=== PATIENT | male | born 1970 | race Caucasian/White ===

== ENCOUNTER 2018-07-12 14:15 | Observation (INO) | payer OTHER ==
[~2018-07-12] VITALS: Ht 180.3 cm; Wt 217.5 kg
[2018-07-12 14:19] VITALS: Ht 180.3 cm; Wt 217.5 kg
--- NOTE | 2018-07-12 14:29 | NUR ---
PT SENT TO LOBBY TO WAIT FOR AVAILABLE BED. NO DISTRESS AND PT IS ALERT AND ORIENTED AT THIS TIME
--- NOTE | 2018-07-12 16:35 | NUR ---
AWAKE ALERT ORIENTED, STATED SINCE ONE WEEK STARTED TO HAVE SOB AND NON PRODUCTIVE COUGH,,ALSO SHARP CHEST PAIN DURING COUGHING .
--- NOTE | 2018-07-12 17:00 | NUR ---
RESP. IMPROVED BUT STILL SOB IN MINIMAL EXERTION,
[2018-07-12 17:39] LABS: BASOPHIL % 0.5 % (0-2); PLATELET COUNT 205 x10^3mcL (130-400)
[2018-07-12 17:44] LABS: CALCIUM 8.6 mg/dL (8.5-10.1); CARBON DIOXIDE 26.7 mmol/L (21-32); CHLORIDE SERUM 92 mmol/L (98-107); CREATININE SERUM 1.1 mg/dL (0.7-1.3); GFR1 > 60 mL/min; GLUCOSE SERUM 320 mg/dL (74-106); POTASSIUM SERUM 4.2 mmol/L (3.5-5.1); SODIUM SERUM 129 mmol/L (136-145)
[2018-07-12 17:57] LABS: ALKALINE PHOSPHATASE 63 U/L (46-116); ALT/SGPT 40 U/L (16-63); AST/SGOT 77 U/L (15-37); BILIRUBIN TOTAL 0.57 mg/dL (0.20-1.00); C REACTIVE PROTEIN 7.2 mg/dL (<=0.9)
[2018-07-12 17:59] LABS: T3 TOTAL 1.41 ng/mL
[2018-07-12 18:02] LABS: ALBUMIN 3.1 g/dL (3.4-5.0); TOTAL PROTEIN, SERUM 8.3 g/dL (6.4-8.2)
[2018-07-12 18:24] LABS: CK-MB 1.6 ng/mL (0-3.6)
[2018-07-12 18:36] LABS: FREE T4 1.69 ng/dL (0.76-1.46); FREE THYROXINE INDEX 4.2 ug/dL (1.4-4.5); T4(THYROXINE) 12.3 ug/dL (4.7-13.3)
[2018-07-12 18:37] LABS: ERYTHROCYTE SED RATE 82 mm/hr (0-15)
--- NOTE | 2018-07-12 19:06 | NUR ---
US DONE TO LOWER EXTREMITIES, PT UNABLE TO TOLERATE BIPAP RESP. THERAPIST CALLED
--- NOTE | 2018-07-12 19:10 | NUR ---
RECEIVED REPORT FROM JOEY LUCERO. PT SITTING UP ON EDGE OF BED WITH BIPAP IN PLACE. NO SIGNS OF DISTRESS AT THIS TIME.
--- NOTE | 2018-07-12 20:10 | NUR ---
REPORT GIVEN TO KLEVER LUCERO.
--- NOTE | 2018-07-12 20:40 | NUR ---
RECEIVED PT FROM ED VIA [facility] ACCOMPANIED BY RN ON 3LNC. NO ACUTE DISTRESS NOTED. AOX4. PT ABLE TO AMBULATE TO THE BED. COMPLAINT OF SOME SOB. INCREASED O2 TO 4LNC. DENIES ANY CHEST PAIN/PRESSURE. IVL TO LFA, PATENT AND INTACT. BED IN LOWEST POSITION. SIDE RAILS UP X2. INSTRUCTED ON USE OF CALL LIGHT WHEN IN NEED OF ASSISTANCE, WITHIN REACH. WILL CONTINUE TO MONITOR.
[2018-07-12 22:32] VITALS: BP 123/63
--- NOTE | 2018-07-13 00:45 | NUR ---
PT RESTING IN BED COMFORTABLY AFTER USING THE BATHROOM. NO SOB NOTED ON 4LNC. MEDICATED PT PER EMAR FOR 8/10 LOWER BACK/TAILBONE PAIN. IVL INTACT AND PATENT. BED IN LOWEST POSITION. SIDE RAILS UP X2. CALL LIGHT WITHIN REACH. WILL REASSESS FOR PAIN AND CONTINUE TO MONITOR.
[2018-07-13 05:12] VITALS: BP 117/39
[2018-07-13 06:16] LABS: BASOPHIL % 0.4 % (0-2); PLATELET COUNT 181 x10^3mcL (130-400)
--- NOTE | 2018-07-13 06:29 | NUR ---
PT SLEPT PERIODICALLY THROUGHOUT THE NIGHT. NO ACUTE DISTRESS NOTED. EVEN AND UNLABORED RESPIRATIONS NOTED ON 4LNC, NONPRODUCTIVE COUGH NOTED. IV INTACT AND PATENT. ALL NEEDS TENDED TO AND MET. BACK PAIN MEDICATED PER EMAR. FASTING BLOOD SUGAR: 312 COVERED WITH 12 UNITS OF INSULIN. ROCEPHIN ADMINISTERED VIA IVPB. PT TOLERATED MEDS WELL. BED IN LOWEST POSITION. SIDE RAILS UP X2. CALL LIGHT WITHIN REACH. WILL CONTINUE TO MONITOR.
--- NOTE | 2018-07-13 07:05 | NUR ---
RECIEVED PT FROM NIGHT NURSE. PT IS LAYING DOWN IN BED WITH HOB UP. RESPIRATIONS EVEN AND UNLABORED ON 4L NC. PT LOOKS TO BE IN NO ACUTE DISTRESS AT THIS TIME. PT REQUESTING TO LEAVE, PT ASKED TO STAY UNTIL DR. QUIÑONES, PT AGREED TO STAY. IV SITE PATENT WITH NO SIGNS OF ERYTHEMA OR SWELLING. SWELLING TO BLE, BUE. BED IN LOWEST POSITION. CALL LIGHT WITHIN REACH. WILL CONTINUE TO MONITOR.
[2018-07-13 07:08] LABS: ALKALINE PHOSPHATASE 51 U/L (46-116); ALT/SGPT 35 U/L (16-63); AST/SGOT 76 U/L (15-37); BILIRUBIN TOTAL 0.49 mg/dL (0.20-1.00); CALCIUM 8.5 mg/dL (8.5-10.1); CARBON DIOXIDE 29.6 mmol/L (21-32); CHLORIDE SERUM 95 mmol/L (98-107); GFR1 > 60 mL/min; GLUCOSE SERUM 311 mg/dL (74-106); MAGNESIUM 2.1 mg/dL (1.8-2.4); PHOSPHOROUS 3.7 mg/dL (2.5-4.9); POTASSIUM SERUM 4.2 mmol/L (3.5-5.1); SODIUM SERUM 133 mmol/L (136-145); TOTAL PROTEIN, SERUM 7.3 g/dL (6.4-8.2)
[2018-07-13 07:22] LABS: ALBUMIN 2.9 g/dL (3.4-5.0)
[2018-07-13 08:09] VITALS: BP 132/60
[2018-07-13 12:13] VITALS: BP 119/64
--- NOTE | 2018-07-13 12:40 | NUR ---
TALKING WITH PT. DR. RIZVI RECOMMENDED TO PT TO TAKE PT OFF O2 AND SEE HOW PT DOES WHILE ON ROOM AIR. PT OFF O2 AND SATTING AT 92%, DR. RIZVI SAID THAT O2 OKAY. REQUESTING TO WALK PT AROUND AND SEE HOW O2 SAT IS. WILL AMBULATE WITH PT AFTER FINISHED WITH LUNCH.
[2018-07-13 13:25] LABS: UA SPECIFIC GRAVITY <=1.005 (1.005-1.035); microscopic required? YES; urine erythrocyte 1+ (NEGATIVE)
--- NOTE | 2018-07-13 13:32 | NUR ---
AMBULATED WITH PT. PT O2 DROPPED DOWN TO 79%. PUT PT BACK ON 02 THERAPY, NOW SATTING AT 96% ON 2L NC. DR. CHENG AWARE. WILL CONTINUE TO MONITOR.
[2018-07-13] MEDS ORDERED: NOR10T PO (13:54)
[2018-07-13] MEDS ORDERED: NEURONTIN800 MG PO (13:54)
[2018-07-13] MEDS ORDERED: ACT30 PO (13:55)
[2018-07-13 16:24] VITALS: BP 125/64
--- NOTE | 2018-07-13 17:50 | NUR ---
PORTABLE VQ SCAN BROUGHT INTO PT ROOM. SCAN BEING COMPLETED.
--- NOTE | 2018-07-13 18:36 | NUR ---
PT COMPLETIN GVQ SCAN. BED IN LOWEST POSITION. NUCLEAR MED TECH AT BEDSIDE. IV SITE PATENT WITH NO SIGNS OF ERYTHEMA OR SWELLING. WILL ENDORSE TO ONCOMING SHIFT.
--- NOTE | 2018-07-13 18:47 | NUR ---
VQ SCAN COMPLETED
--- NOTE | 2018-07-13 19:15 | NUR ---
CARE ASSUMED FROM OUTGOING RN. PT SITTING COMFORTABLY ON SIDE OF BED. FAMILY AT BEDSIDE. NO ACUTE DISTRESS NOTED. EVEN AND UNLABORED RESPIRATIONS NOTED ON 2LNC. IVL PATENT AND INTACT. BED IN LOWEST POSITION. SIDE RAILS UP X2. CALL LIGHT WITHIN REACH. WILL CONTINUE TO MONITOR.
[2018-07-13 20:41] VITALS: BP 133/68
--- NOTE | 2018-07-14 00:05 | NUR ---
PT RESTING COMFORATABLY IN BED. NO ACUTE DISTRESS NOTED. EVEN AND UNLABORED RESPIRATIONS ON 2LNC. PO NEURONTIN GIVEN. LOWER BACK PAIN REASSESSES. PAIN IS MANAGEABLE. WILL REASSESS. BED IN LOWEST POSITION. SIDE RAILS UP X2. CALL LIGHT WITHIN REACH. WILL CONTINUE TO MONITOR.
[2018-07-14 05:06] VITALS: BP 130/55
--- NOTE | 2018-07-14 07:10 | NUR ---
RECIEVED PT FROM NIGHT NURSE. PT SITTING UP IN BED. PT LOOKS TO BE IN NO ACUTE DISTRESS AT THIS TIME AND DENIES ANY PAIN. BED IN LOWEST POSITION, CALL LIGHT WITHIN REACH. WILL CONTINUE TO MONITOR.
--- NOTE | 2018-07-14 07:10 | NUR ---
RECIEVED PT FROM NIGHT NURSE. PT IS LAYING DOWN IN BED RESTING WITH EYES CLOSED WITH HOB UP RESTING. RESPIRATIONS EVEN AND UNLABORED ON 2L NC. PT LOOKS TO BE IN NO ACUTE DISTRESS AT THIS TIME. IV SITE LOOKS PATENT WITH NO SIGNS OF ERYTHEMA OR SWELLING. BED IN LOWEST POSITION. CALL LIGHT WITHIN REACH. WILL CONTINUE TO MONITOR.
[2018-07-14 10:20] VITALS: BP 128/61
[2018-07-14 13:37] VITALS: BP 128/61
--- NOTE | 2018-07-14 13:40 | NUR ---
PT AWAKE, ALERT AND ORIENTED AND LOOKS TO BE IN NO ACUTE DISTRESS AT TIME OF DISCHARGE. PT DISCHARGED HOME AND WALKED TO [facility] WITH NURSE AND ON 2L NC. O2 THERAPY CURRENTLY AT HOME. PT DENIES FEELING DIZZY WHILE WALKING. BELONGINGS IN HAND. EDUCATION PROVIDED TO PT AND PT VERBALIZED UNDERSTANDING, NO NEW PRESCRIPTIONS. PT TOLD TO FOLLOW UP WITH [facility] WITHIN A WEEK OF DISCHARGE. PT VERBALIZED UNDERSTANDING. IV REMOVED AND CATHETER FULLY INTACT. ALL QUESTIONS ADDRESSED.
== END 2018-07-14 13:48 | disposition home or self-care (01) | DRG 206 ==
LOC: ED 14:15 → DU 19:49 → MU 19:49 → DU 20:28 → MU 21:38
PROVIDERS: Specialist; ADMIT Internal Medicine Pulmonary Disease
DX: E66.2 Morbid (severe) obesity with alveolar hypoventilation (principal); I10 Essential (primary) hypertension; E11.9 Type 2 diabetes mellitus without complications; R60.0 Localized edema
CPT/HCPCS: 36600; 78598; 82962; 83880; 84439; 85378; 87804; A9540; G0378; J0696; J1940; J7050; J7613; J7644; Q0092

== ENCOUNTER 2018-12-21 15:45 | Emergency (ER) | payer OTHER ==
[~2018-12-21] VITALS: Ht 180.3 cm; Wt 225.7 kg
[~2018-12-21 15:45] MED LIST: ACT30 PO; NEURONTIN800 MG PO; NOR10T PO
[2018-12-21 16:06] VITALS: Ht 180.3 cm; Wt 225.7 kg
[2018-12-21 16:53] LABS: BASOPHIL % 0.4 % (0-2); PLATELET COUNT 246 x10^3mcL (130-400); RED CELL DISTRIBUTION WIDTH 13.6 % (11.5-14.5)
[2018-12-21 16:57] LABS: CALCIUM 9.3 mg/dL (8.5-10.1); CARBON DIOXIDE 27.4 mmol/L (21-32); CHLORIDE SERUM 96 mmol/L (98-107); CREATININE SERUM 1.3 mg/dL (0.7-1.3); GFR1 > 60 mL/min; GLUCOSE SERUM 402 mg/dL (74-106); POTASSIUM SERUM 4.9 mmol/L (3.5-5.1); SODIUM SERUM 135 mmol/L (136-145)
[2018-12-21 17:01] LABS: ALBUMIN 3.5 g/dL (3.4-5.0); ALKALINE PHOSPHATASE 120 U/L (46-116); ALT/SGPT 26 U/L (16-63); AST/SGOT 19 U/L (15-37); BILIRUBIN TOTAL 0.34 mg/dL (0.20-1.00); C REACTIVE PROTEIN 3.9 mg/dL (<=0.9)
[2018-12-21 17:08] LABS: TOTAL PROTEIN, SERUM 8.8 g/dL (6.4-8.2)
[2018-12-21 17:44] LABS: ERYTHROCYTE SED RATE 56 mm/hr (0-15)
[2018-12-21 19:55] VITALS: BP 100/58
== END 2018-12-21 19:55 | disposition home or self-care (01) ==
LOC: ED 15:45
PROVIDERS: Emergency Medicine
DX: S92.512A Displaced fracture of proximal phalanx of left lesser toe(s), initial encounter for closed fracture (principal); L08.9 Local infection of the skin and subcutaneous tissue, unspecified; E11.65 Type 2 diabetes mellitus with hyperglycemia; I10 Essential (primary) hypertension; G89.29 Other chronic pain; M54.9 Dorsalgia, unspecified; X58.XXXA Exposure to other specified factors, initial encounter; Y93.89 Activity, other specified; Y92.89 Other specified places as the place of occurrence of the external cause; Y99.8 Other external cause status
CPT/HCPCS: 82962; J1815; J2543; J3370; Q0092

== ENCOUNTER 2019-03-04 03:36 | Emergency (ER) | payer OTHER ==
[~2019-03-04] VITALS: Ht 180.3 cm; Wt 224.5 kg
[2019-03-04 03:40] VITALS: Ht 180.3 cm; Wt 224.5 kg
[2019-03-04 05:19] VITALS: BP 128/75
== END 2019-03-04 05:20 | disposition home or self-care (01) ==
LOC: ED 03:36
DX: L03.116 Cellulitis of left lower limb (principal); I10 Essential (primary) hypertension; E11.9 Type 2 diabetes mellitus without complications; G89.29 Other chronic pain
CPT/HCPCS: 90715

== ENCOUNTER 2019-04-13 17:17 | Emergency (ER) | payer OTHER ==
[~2019-04-13] VITALS: Ht 180.3 cm; Wt 210.0 kg
[2019-04-13 17:26] VITALS: Ht 180.3 cm; Wt 210.0 kg
[2019-04-13 19:30] LABS: BASOPHIL % 0.2 % (0-2); PLATELET COUNT 218 x10^3mcL (130-400); RED CELL DISTRIBUTION WIDTH 13.4 % (11.5-14.5)
[2019-04-13 19:42] LABS: CALCIUM 8.9 mg/dL (8.5-10.1); CARBON DIOXIDE 28.6 mmol/L (21-32); CHLORIDE SERUM 103 mmol/L (98-107); CREATININE SERUM 0.9 mg/dL (0.7-1.3); GFR1 > 60 mL/min; GLUCOSE SERUM 221 mg/dL (74-106); POTASSIUM SERUM 3.8 mmol/L (3.5-5.1); SODIUM SERUM 139 mmol/L (136-145)
[2019-04-13 19:51] LABS: ALKALINE PHOSPHATASE 124 U/L (46-116); ALT/SGPT 39 U/L (16-63); AST/SGOT 24 U/L (15-37)
[2019-04-13 19:53] LABS: ALBUMIN 3.3 g/dL (3.4-5.0)
[2019-04-13 20:03] LABS: BILIRUBIN TOTAL 0.56 mg/dL (0.20-1.00)
[2019-04-14 00:07] VITALS: BP 151/74
== END 2019-04-14 00:07 | disposition short-term general hospital (02) ==
LOC: ED 17:17
PROVIDERS: Student in an Organized Health Care Education/Training Program
DX: R07.9 Chest pain, unspecified (principal); E11.9 Type 2 diabetes mellitus without complications; I50.9 Heart failure, unspecified; E66.01 Morbid (severe) obesity due to excess calories; Z79.4 Long term (current) use of insulin
CPT/HCPCS: 82962; 83880; J1940